=== PATIENT | male | born 1950 | race Caucasian/White ===

== ENCOUNTER 2017-05-22 20:01 | Emergency (ER) | payer MEDICARE, OTHER ==
[~2017-05-22] VITALS: Ht 175.3 cm; Wt 110.0 kg
[~2017-05-22 20:01] MED LIST: ENOX40P SQ; HYOS0.129 PO; METO25 PO; PARO10TA PO; VASO10TA8 PO
--- NOTE | 2017-05-22 20:34 | PD ---
HPI Chief Complaint: Figueroa act Time Seen by Provider: 20:13 Travel History International Travel<30 days: No Contact w/Intl Traveler<30days: No Traveled to known affect area: No History of Present Illness HPI 66-year-old male presents emergency department under Figueroa act by PD. Patient had called PD because he was having an argument with his . During the interview the patient had made a homicidal statement to PD regarding his . He was placed under a Figueroa act and brought to the ER. The patient denies any suicidal or true homicidal ideation. He states that he was fighting with his after drinking alcohol earlier. The patient states that he and his have been arguing throughout the day and she did not want him to leave to go play cards with his friends. Patient recently was admitted to [facility] 2 days ago for nausea vomiting but was medically cleared and discharged home with indications for nausea and vomiting and abdominal pain. Patient states that his pain is been well controlled. He has chronic COPD and uses multiple inhalers. Does continue to smoke cigars on occasion. He does not feel that his breathing is changed. PFSH Past Medical History Arthritis: Yes Asthma: No Autoimmune Disease: No Anxiety: No Depression: No Heart Rhythm Problems: Yes (Hx of Heart Murmurs) Cancer: No Cardiovascular Problems: Yes High Cholesterol: Yes Chemotherapy: No Chest Pain: No Congestive Heart Failure: No COPD: No Cerebrovascular Accident: No Diabetes: Yes (Type II DM, resolved) Endocrine: No GERD: No Genitourinary: No Hepatitis: No Hiatal Hernia: No Hypertension: Yes (H/O) Immune Disorder: No Kidney Stones: No Musculoskeletal: Yes (RIGHT HIP OSTEOARTHRITIS; HX OSTEOMYLITIS AGE 15) Neurologic: Yes Psychiatric: No Reproductive: No Respiratory: Yes Migraines: No Radiation Therapy: No Renal Failure: No Seizures: No Sickle Cell Disease: No Sleep Apnea: Yes Thyroid Disease: No Ulcer: No Tetanus Vaccination: < 5 Years Past Surgical History Abdominal Surgery: Yes (Gastric Bypass- 6 years ago) AICD: No Arteriovenous Shunt: No Body Medical Devices: RIGHT HIP Cardiac Surgery: No Ear Surgery: No Endocrine Surgery: No Eye Surgery: No Genitourinary Surgery: No Insulin Pump: No Joint Replacement: Yes Oral Surgery: No Pacemaker: No Thoracic Surgery: No Social History Alcohol Use: Yes (OCCASIONAL) Tobacco Use: Yes (< 1/2 PPD;CHEWING TOBACCO) Substance Use: No Allergies-Medications (Allergen,Severity, Reaction): Coded Allergies: morphine (Unverified Allergy, Unknown, PATIENT VERBALLY MEAN, 11/04/16) REPORTS THAT AFTER RECEIVING MORPHINE WAS "MEAN" , IRRITATED, FRUSTRATED Reported Meds & Prescriptions Reported Meds & Active Scripts Active Reported Lovenox (Enoxaparin Sodium) 40 Mg/0.4 Ml Inj 40 Mg SQ DAILY UNTIL 04/30/13, THEN TAKE ASPIRIN 325MG PO DAILY Metoprolol Tartrate 25 Mg Tab 12.5 Mg PO BID Vasotec (Enalapril Maleate) 10 Mg Tab 20 Mg PO DAILY Levsin (Hyoscyamine Sulfate) 0.125 Mg Tab 0.125 Mg PO Q4 PRN Paroxetine Hcl (Paroxetine HCl) 10 Mg Tab 10 Mg PO DAILY 30 Days Review of Systems General / Constitutional: No: Fever Eyes: No: Visual changes HENT: No: Headaches Cardiovascular: No: Chest Pain or Discomfort Respiratory: Positive: Shortness of Breath, No: Pleuritic Pain Gastrointestinal: Positive: Nausea, Abdominal Pain, No: Vomiting Genitourinary: No: Dysuria Musculoskeletal: No: Pain Skin: No Rash Neurologic: No: Weakness Psychiatric: Positive: Depression, Mood Disorder, No: Anxiety, Suicidal Ideations, Disorder of Thought, Substance Abuse, Homicidal Ideation Endocrine: No: Polydipsia Hematologic/Lymphatic: No: Easy Bruising Physical Exam Narrative GENERAL: Morbidly obese, well-developed patient. SKIN: Warm and dry. HEAD: Normocephalic and atraumatic. EYES: No scleral icterus. No injection or drainage. ENT: No nasal drainage noted. Mucous membranes pink. Airway patent. NECK: Supple, trachea midline. Moves head freely without obvious discomfort. CARDIOVASCULAR: Regular rate and rhythm without murmurs, gallops, or rubs. RESPIRATORY: Breath sounds equal bilaterally but decreased . No accessory muscle use. GASTROINTESTINAL: Abdomen soft, non-tender, morbidly obese with a large abdominal pannus. EXTREMITIES: No cyanosis or edema. BACK: Nontender without obvious deformity. No CVA tenderness. NEURO: Patient is alert and oriented. no sensorimotor deficits. Nonfocal. Normal speech. PSYCH: No delusions. No auditory or visual hallucinations. Data Data Orders Orders Complete Blood Count With Diff (05/22/17 20:27) Comprehensive Metabolic Panel (05/22/17 20:27) Thyroid Stimulating Hormone (05/22/17 20:27) Psych Screen (05/22/17 20:27) Drug Screen, Random Urine (05/22/17 20:27) Alcohol (Ethanol) (05/22/17 20:27) Haloperidol Inj (Haldol Inj) (05/22/17 22:15) Lorazepam Inj (Ativan Inj) (05/22/17 22:15) Labs Laboratory Tests Test 05/22/17 20:40 White Blood Count 5.2 TH/MM3 Red Blood Count 5.00 MIL/MM3 Hemoglobin 14.1 GM/DL Hematocrit 42.6 % Mean Corpuscular Volume 85.2 FL Mean Corpuscular Hemoglobin 28.1 PG Mean Corpuscular Hemoglobin Concent 33.0 % Red Cell Distribution Width 14.8 % Platelet Count 382 TH/MM3 Mean Platelet Volume 6.9 FL Neutrophils (%) (Auto) 50.6 % Lymphocytes (%) (Auto) 35.7 % Monocytes (%) (Auto) 11.1 % Eosinophils (%) (Auto) 1.9 % Basophils (%) (Auto) 0.7 % Neutrophils # (Auto) 2.6 TH/MM3 Lymphocytes # (Auto) 1.9 TH/MM3 Monocytes # (Auto) 0.6 TH/MM3 Eosinophils # (Auto) 0.1 TH/MM3 Basophils # (Auto) 0.0 TH/MM3 CBC Comment DIFF FINAL Differential Comment Blood Urea Nitrogen 7 MG/DL Creatinine 1.03 MG/DL Random Glucose 138 MG/DL Total Protein 7.8 GM/DL Albumin 3.4 GM/DL Calcium Level 9.2 MG/DL Alkaline Phosphatase 96 U/L Aspartate Amino Transf (AST/SGOT) 24 U/L Alanine Aminotransferase (ALT/SGPT) 20 U/L Total Bilirubin 0.3 MG/DL Sodium Level 141 MEQ/L Potassium Level 4.0 MEQ/L Chloride Level 106 MEQ/L Carbon Dioxide Level 24.8 MEQ/L Anion Gap 10 MEQ/L Estimat Glomerular Filtration Rate 72 ML/MIN Thyroid Stimulating Hormone 3rd Gen 1.380 uIU/ML Urine Opiates Screen NEG Urine Barbiturates Screen NEG Urine Amphetamines Screen NEG Urine Benzodiazepines Screen NEG Urine Cocaine Screen NEG Urine Cannabinoids Screen NEG Ethyl Alcohol Level 133 MG/DL MDM Medical Decision Making Medical Screen Exam Complete: Yes Emergency Medical Condition: Yes Medical Record Reviewed: Yes Interpretation(s) Laboratory Tests Test 05/22/17 20:40 White Blood Count 5.2 TH/MM3 Red Blood Count 5.00 MIL/MM3 Hemoglobin 14.1 GM/DL Hematocrit 42.6 % Mean Corpuscular Volume 85.2 FL Mean Corpuscular Hemoglobin 28.1 PG Mean Corpuscular Hemoglobin Concent 33.0 % Red Cell Distribution Width 14.8 % Platelet Count 382 TH/MM3 Mean Platelet Volume 6.9 FL Neutrophils (%) (Auto) 50.6 % Lymphocytes (%) (Auto) 35.7 % Monocytes (%) (Auto) 11.1 % Eosinophils (%) (Auto) 1.9 % Basophils (%) (Auto) 0.7 % Neutrophils # (Auto) 2.6 TH/MM3 Lymphocytes # (Auto) 1.9 TH/MM3 Monocytes # (Auto) 0.6 TH/MM3 Eosinophils # (Auto) 0.1 TH/MM3 Basophils # (Auto) 0.0 TH/MM3 CBC Comment DIFF FINAL Differential Comment Blood Urea Nitrogen 7 MG/DL Creatinine 1.03 MG/DL Random Glucose 138 MG/DL Total Protein 7.8 GM/DL Albumin 3.4 GM/DL Calcium Level 9.2 MG/DL Alkaline Phosphatase 96 U/L Aspartate Amino Transf (AST/SGOT) 24 U/L Alanine Aminotransferase (ALT/SGPT) 20 U/L Total Bilirubin 0.3 MG/DL Sodium Level 141 MEQ/L Potassium Level 4.0 MEQ/L Chloride Level 106 MEQ/L Carbon Dioxide Level 24.8 MEQ/L Anion Gap 10 MEQ/L Estimat Glomerular Filtration Rate 72 ML/MIN Thyroid Stimulating Hormone 3rd Gen 1.380 uIU/ML Urine Opiates Screen NEG Urine Barbiturates Screen NEG Urine Amphetamines Screen NEG Urine Benzodiazepines Screen NEG Urine Cocaine Screen NEG Urine Cannabinoids Screen NEG Ethyl Alcohol Level 133 MG/DL Differential Diagnosis MDM: High Differential diagnoses: Schizophrenia, schizoaffective disorder, bipolar, anxiety, depression, adjustment reaction, mood disorder NOS, ODD, depressive disorder NOS, dementia, dementia with agitation, psychosis NOS, substance induced mood disorder, DMDD, Asperger syndrome, infection,electrolyte abnormality, malingering. Narrative Course Mental health screening discussed with the patient. Psychiatric screen ordered. The patient has been medically cleared. The patient has become increasingly agitated and aggressive towards staff. The patient is medicated with Haldol 10 mg and Ativan 2 mg IM. This is medical clearance for psychiatric admission Diagnosis Primary Impression: Medical clearance for psychiatric admission Condition: Stable Manfred Rasmussen May 22, 2017 20:33
[2017-05-22 21:03] LABS: AUTOMATED NEUTROPHIL # 2.6 TH/MM3 (1.8-7.7); BASOPHIL % 0.7 % (0.0-2.0); EOSINOPHIL # 0.1 TH/MM3 (0-0.4); EOSINOPHIL % 1.9 % (0.0-4.0); HEMATOCRIT 42.6 % (39.0-51.0); HEMOGLOBIN 14.1 GM/DL (13.0-17.0); LYMPH % 35.7 % (9.0-44.0); LYMPHOCYTE # 1.9 TH/MM3 (1.0-4.8); MEAN CELL VOLUME 85.2 FL (80.0-100.0); MEAN CORPUSCULAR HEMOGLOBIN 28.1 PG (27.0-34.0); MEAN PLATELET VOLUME 6.9 FL (7.0-11.0); MONO % 11.1 % (0.0-8.0); MONOCYTE # 0.6 TH/MM3 (0-0.9); NEUT % 50.6 % (16.0-70.0); PLATELET COUNT 382 TH/MM3 (150-450); RED CELL DISTRIBUTION WIDTH 14.8 % (11.6-17.2); WHITE BLOOD COUNT 5.2 TH/MM3 (4.0-11.0)
[2017-05-22 21:21] LABS: ALBUMIN 3.4 GM/DL (3.4-5.0); AST (GOT) 24 U/L (15-37); BICARBONATE 24.8 MEQ/L (21.0-32.0); BLOOD UREA NITROGEN 7 MG/DL (7-18); CALCIUM 9.2 MG/DL (8.5-10.1); CHLORIDE 106 MEQ/L (98-107); CREATININE 1.03 MG/DL (0.60-1.30); GLOMERULAR FILTRATION RATE 72 ML/MIN (>89); GLUCOSE,RANDOM 138 MG/DL (74-106); SODIUM (NA) 141 MEQ/L (136-145)
[2017-05-22 21:22] LABS: ALT (GPT) 20 U/L (12-78)
[2017-05-22 21:32] LABS: ALKALINE PHOSPHATASE 96 U/L (45-117); TOTAL BILIRUBIN ADULT 0.3 MG/DL (0.2-1.0); TOTAL PROTEIN 7.8 GM/DL (6.4-8.2)
[2017-05-22] MEDS ORDERED: LORazepam 2 MG/ML VIAL IM ONE (22:15)
[2017-05-22] MEDS ORDERED: HALOPERIDOL LACTATE 5 MG/ML AMP IM ONE (22:15)
[2017-05-23 02:27] VITALS: BP 151/76; PULSE 93; RESP 18; TEMP 98.6; O2SAT 97
[2017-05-23 06:00] VITALS: BP 119/71; PULSE 100; RESP 19; TEMP 98.2; O2SAT 99
[2017-05-23 08:51] VITALS: BP 150/85; PULSE 101; RESP 16; TEMP 98.2; O2SAT 96
[2017-05-23] MEDS ORDERED: BUPR150CR PO (09:19)
[2017-05-23] MEDS ORDERED: ENAL20TA PO (09:19)
[2017-05-23] MEDS ORDERED: MONT10TA4 PO (09:20)
[2017-05-23] MEDS ORDERED: PARO10TA2 PO (09:20)
[2017-05-23] MEDS ORDERED: FLUT1INH INH (09:21)
[2017-05-23] MEDS ORDERED: HYDR25TA5 PO (09:21)
[2017-05-23] MEDS ORDERED: ALBU1AER5 INH (09:23)
[2017-05-23] MEDS ORDERED: MULT1TAB (09:26)
[2017-05-23] MEDS ORDERED: VITA500T35 PO (09:27)
[2017-05-23] MEDS ORDERED: Iron PO (09:28)
--- NOTE | 2017-05-23 09:37 | PD ---
Physical Exam Date Seen by Provider: May 23, 2017 Time Seen by Provider: 09:35 Narrative 66-year-old male previously brought in under the Figueroa act, and medically cleared for psychiatric evaluation, has been seen by psychiatric staff and felt to need further inpatient treatment. Patient has been accepted at the [facility]. Patient remains medically stable for transfer. I was asked to see a small laceration to the left index finger which the patient noted to be swollen and erythematous this morning. This was examined and the patient was started on Bactrim DS twice daily 5 days. This is a superficial wound with localized cellulitis, not amenable to closure. Data Data Last Documented VS Vital Signs Date Time Temp Pulse Resp B/P (MAP) Pulse Ox O2 Delivery O2 Flow Rate FiO2 05/23/17 08:51 98.2 101 16 150/85 (106) 96 Room Air Orders Orders Complete Blood Count With Diff (05/22/17 20:27) Comprehensive Metabolic Panel (05/22/17 20:27) Thyroid Stimulating Hormone (05/22/17 20:27) Psych Screen (05/22/17 20:27) Drug Screen, Random Urine (05/22/17 20:27) Alcohol (Ethanol) (05/22/17 20:27) Haloperidol Inj (Haldol Inj) (05/22/17 22:15) Lorazepam Inj (Ativan Inj) (05/22/17 22:15) Diet Diabetic (05/23/17 Breakfast) Metoprolol Tartrate (Lopressor) (05/23/17 09:45) Enalapril (Vasotec) (05/23/17 09:45) Ed Discharge Order (05/23/17 09:37) Labs Laboratory Tests Test 05/22/17 20:40 White Blood Count 5.2 TH/MM3 Red Blood Count 5.00 MIL/MM3 Hemoglobin 14.1 GM/DL Hematocrit 42.6 % Mean Corpuscular Volume 85.2 FL Mean Corpuscular Hemoglobin 28.1 PG Mean Corpuscular Hemoglobin Concent 33.0 % Red Cell Distribution Width 14.8 % Platelet Count 382 TH/MM3 Mean Platelet Volume 6.9 FL Neutrophils (%) (Auto) 50.6 % Lymphocytes (%) (Auto) 35.7 % Monocytes (%) (Auto) 11.1 % Eosinophils (%) (Auto) 1.9 % Basophils (%) (Auto) 0.7 % Neutrophils # (Auto) 2.6 TH/MM3 Lymphocytes # (Auto) 1.9 TH/MM3 Monocytes # (Auto) 0.6 TH/MM3 Eosinophils # (Auto) 0.1 TH/MM3 Basophils # (Auto) 0.0 TH/MM3 CBC Comment DIFF FINAL Differential Comment Blood Urea Nitrogen 7 MG/DL Creatinine 1.03 MG/DL Random Glucose 138 MG/DL Total Protein 7.8 GM/DL Albumin 3.4 GM/DL Calcium Level 9.2 MG/DL Alkaline Phosphatase 96 U/L Aspartate Amino Transf (AST/SGOT) 24 U/L Alanine Aminotransferase (ALT/SGPT) 20 U/L Total Bilirubin 0.3 MG/DL Sodium Level 141 MEQ/L Potassium Level 4.0 MEQ/L Chloride Level 106 MEQ/L Carbon Dioxide Level 24.8 MEQ/L Anion Gap 10 MEQ/L Estimat Glomerular Filtration Rate 72 ML/MIN Thyroid Stimulating Hormone 3rd Gen 1.380 uIU/ML Urine Opiates Screen NEG Urine Barbiturates Screen NEG Urine Amphetamines Screen NEG Urine Benzodiazepines Screen NEG Urine Cocaine Screen NEG Urine Cannabinoids Screen NEG Ethyl Alcohol Level 133 MG/DL MDM Medical Record Reviewed: Yes Supervised Visit with ZHANE: Yes Narrative Course 66-year-old male previously brought in under the Figueroa act, and medically cleared for psychiatric evaluation, has been seen by psychiatric staff and felt to need further inpatient treatment. Patient has been accepted at the [facility]. Patient remains medically stable for transfer. I was asked to see a small laceration to the left index finger which the patient noted to be swollen and erythematous this morning. This was examined and the patient was started on Bactrim DS twice daily 5 days. This is a superficial wound with localized cellulitis, not amenable to closure. Diagnosis Primary Impression: Medical clearance for psychiatric admission Additional Impression: Cellulitis of left index finger Patient Instructions: General Instructions Scripts Sulfamethoxazole-Trimethoprim (Bactrim DS) 800-160 Mg Tab 1 TAB PO BID for Infection, #10 TAB 0 Refills Prov: Cherelle De La Cruz MD 05/23/17 Disposition: 70 TRANSFER TO OTHER FACILITY Condition: Stable Syed Lama May 23, 2017 09:37
[2017-05-23] MEDS ORDERED: ENALAPRIL MALEATE 10 MG TAB PO ONE (09:45)
[2017-05-23] MEDS ORDERED: METOPROLOL TARTRATE 25 MG TAB PO ONE (09:45)
[2017-05-23] MEDS ORDERED: BACT800T5 PO (09:52)
[2017-05-23] MEDS ORDERED: SULFAMETHOXAZOLE-TRIMETHOPRIM DS 800-160 MG TAB PO ONE (10:00)
[2017-05-23 10:20] VITALS: BP 136/64; PULSE 81; RESP 18; TEMP 97.9; O2SAT 97
[2017-05-23] MEDS ORDERED: LORazepam 2 MG/ML VIAL IM STA (11:38)
[2017-05-23] MEDS ORDERED: HALOPERIDOL LACTATE 5 MG/ML AMP IM ONE (11:45)
[2017-05-24] MEDS ORDERED: FERR325T18 PO (10:54)
== END 2017-05-23 12:40 | disposition short-term general hospital (02) ==
LOC: NEPD 20:01 → NEPJ 05-23 12:40
DX: Z00.8 Encounter for other general examination (principal); L03.012 Cellulitis of left finger; M19.90 Unspecified osteoarthritis, unspecified site; E78.00 Pure hypercholesterolemia, unspecified; E11.9 Type 2 diabetes mellitus without complications; I10 Essential (primary) hypertension; F17.200 Nicotine dependence, unspecified, uncomplicated; Z98.84 Bariatric surgery status; Z88.5 Allergy status to narcotic agent
CPT/HCPCS: 80053; 80307; 84443; 85025; 96372; 99285; J1630; J2060